=== PATIENT | female | born 1975 | race Caucasian/White ===

== ENCOUNTER 2017-04-20 17:56 | Observation (INO) | payer BC, OTHER ==
[2017-04-20] MEDS ORDERED: IPRATROPIUM 0.5 MG/2.5 ML NEBU INHALATION STA (18:26)
[2017-04-20] MEDS ORDERED: methylPREDNISolone SOD SUCCI 125 MG/2 ML VIAL IV STA (18:26)
[2017-04-20] MEDS ORDERED: SODIUM CHLORIDE 0.9% 1,000 ML IV STA ×2 (18:26)
[2017-04-20] MEDS ORDERED: ALBUTEROL NEBULIZED 2.5 MG/3 ML INHALATION STA (18:26)
[2017-04-20] MEDS ORDERED: cefTRIAXone IN SWFI 1,000 MG/10 ML SYRINGE IVP STA (18:26)
[2017-04-20] MEDS ORDERED: cefTRIAXone IN SWFI 2,000 MG/20 ML SYRINGE IVP STA (18:31)
[2017-04-20 19:38] LABS: Appearance,Urine Cloudy (Clear); Bacteria,Urine Occasional /hpf; Bilirubin,Urine Negative (Negative); Blood,Urine Small (Negative); Color,Urine Yellow; Glucose,Urine (UA) Negative (Negative); Ketones,Urine Negative (Negative); Leukocyte Esterase,Urine Trace (Negative); Nitrite,Urine Negative (Negative); Protein,Urine Trace (Negative); RBC,Urine 11 /hpf (0-5); Specific Gravity,Urine 1.008 (1.001-1.035); Squamous Epithelial Cell,Urine 2 /hpf (0-4); WBC,Urine 14 /hpf (0-5)
[2017-04-20 20:36] LABS: HCT 37.3 % (34.0-46.0); HGB 12.4 gm/dL (11.4-16.0); MCH 28.3 pg (25.0-35.0); MCHC 33.2 g/dL (31.0-37.0); MCV 85.4 fL (80.0-100.0); Platelet Count 166 k/uL (150-450); RBC 4.37 m/uL (3.80-5.40); RDW 13.4 % (11.5-15.5); WBC 5.3 k/uL (3.8-10.6)
--- NOTE | 2017-04-20 20:40 | XR ---
EXAMINATION TYPE: XR chest 2V DATE OF EXAM: 04/20/2017 COMPARISON: NONE HISTORY: Shortness of breath TECHNIQUE: Frontal and lateral views of the chest are obtained. FINDINGS: There is no focal air space opacity, pleural effusion, or pneumothorax seen. The cardiac silhouette size is within normal limits. There are overlying cardiac leads. There may be a spinal cu rvature. The osseous structures are intact. IMPRESSION: No acute cardiopulmonary process.
[2017-04-20 20:51] LABS: D-Dimer 2.54 mg/L FEU (<0.60); INR 1.1 (<1.2); Partial Thromboplastin Time 37.4 sec (22.0-30.0); Prothrombin Time 10.3 sec (9.0-12.0)
[2017-04-20 20:52] LABS: Albumin 3.4 g/dL (3.5-5.0); Calcium 8.8 mg/dL (8.4-10.2); Potassium 3.3 mmol/L (3.5-5.1); Total Bilirubin 1.2 mg/dL (0.2-1.3); Total Protein 6.2 g/dL (6.3-8.2)
[2017-04-20 21:02] LABS: Eosinophils # (M) 0.11 k/uL (0-0.7); Lymphocytes # (M) 1.06 k/uL (1.0-4.8); Monocytes # (M) 0.05 k/uL (0-1.0); Neutrophils # (M) 4.08 k/uL (1.3-7.7); Neutrophils % (M) 77 %; Nucleated Red Blood Cells 0 /100 WBC (0-0); Total Cells Counted 100
[2017-04-20 21:09] LABS: Creatine Kinase 34 U/L (30-135)
[2017-04-20 21:18] LABS: Creatine Kinase MB <0.2 ng/mL (0.0-2.4)
[2017-04-20 21:40] LABS: Troponin I <0.012 ng/mL (0.000-0.034)
--- NOTE | 2017-04-20 22:12 | ED ---
SOB HPI - General Chief Complaint: Shortness of Breath Stated Complaint: SOB Time Seen by Provider: 04/20/17 18:07 Source: patient Mode of arrival: wheelchair Limitations: no limitations - History of Present Illness Initial Comments: 41 years O female presents with a shortness of breath she said she got some UTIs she was put him on a Macrobid she does have a history of bladder infections then now she feels that she developed an ALLERGIC reaction to Macrobid she develop shortness of breath the back pain fever chills and aches all over. Has history of hypertension and migraine. Complains about the headache no neck stiffness no signs of any meningitis no chest pain she is short -winded now coughing up any phlegm no abdominal pain complaining about the back pain generalized no trauma review of system is unremarkable otherwise - Related Data Home Medications Medication Instructions Recorded Confirmed ALPRAZolam [Xanax] 0.25 mg PO DAILY PRN 04/20/17 04/20/17 Albuterol Sulfate [Proair Hfa] 2 puff INHALATION RT-Q6H PRN 04/20/17 04/20/17 Cetirizine HCl [Zyrtec] 10 mg PO DAILY 04/20/17 04/20/17 Ciprofloxacin HCl [Cipro] 500 mg PO BID 04/20/17 04/20/17 Citalopram Hydrobromide [CeleXA] 20 mg PO DAILY 04/20/17 04/20/17 Hydrochlorothiazide [Hydrodiuril] 25 mg PO DAILY 04/20/17 04/20/17 Allergies Allergy/AdvReac Type Severity Reaction Status Date / Time adhesive tape Allergy Rash/Hives Verified 04/20/17 19:09 nitrofurantoin Allergy SHORTNESS Verified 04/20/17 19:09 [From Macrobid] OF BREATHE shellfish derived [Shellfish] Allergy Swelling Verified 04/20/17 19:09 Sulfa (Sulfonamide Allergy Swelling Verified 04/20/17 19:09 Antibiotics) fish oil AdvReac Nausea & Verified 04/20/17 19:09 Vomiting Review of Systems ROS Statement: Those systems with pertinent positive or pertinent negative responses have been documented in the HPI. ROS Other: All systems not noted in ROS Statement are negative. Past Medical History Past Medical History: No Reported History History of Any Multi-Drug Resistant Organisms: None Reported Past Surgical History: Section, Ear Surgery Past Psychological History: Anxiety Smoking Status: Never smoker Past Alcohol Use History: None Reported General Exam - General Exam Comments Initial Comments: General: The patient is awake and alert, in moderate distress, pale and looks tired Skin: Skin is warm and dry and no rashes or lesions are noted. Eye: Pupils are equal, round and reactive to light, extra-ocular movements are intact; there is normal conjunctiva bilaterally. Ears, nose, mouth and throat: There are moist mucous membranes and no oral lesions. Neck: The neck is supple, there is no tenderness . Cardiovascular: There is a regular rate and rhythm. No murmur, rub or gallop is appreciated. Respiratory: To auscultation bilateral, poor air exchange deep breaths or painful Gastrointestinal: Soft, non-distended, non-tender abdomen without masses or organomegaly noted. There is no rebound or guarding present. Bowel sounds are unremarkable. Back: There is no tenderness to palpation in the midline. There is no obvious deformity. Musculoskeletal: Normal ROM, no tenderness, There is no pedal edema. There is no calf tenderness or swelling. No cords were appreciated. Neurological: CN II-XII intact, Cranial nerves III through XII are intact. There are no obvious motor or sensory deficits. Coordination appears grossly intact. Speech is normal. Psychiatric: Cooperative, appropriate mood & affect, normal judgment. Limitations: no limitations Course Vital Signs 04/20/17 04/20/17 04/20/17 18:06 19:23 19:25 Temperature 98.5 F Pulse Rate 85 85 96 Respiratory 18 20 Rate Blood Pressure 159/92 140/65 O2 Sat by Pulse 99 100 Oximetry 04/20/17 04/20/17 19:54 20:34 Temperature Pulse Rate 128 H 107 H Respiratory 18 Rate Blood Pressure 148/72 O2 Sat by Pulse 99 Oximetry EKG is a normal sinus rhythm ventricular rate is 84 TN interval is 120 QRS duration is 86 QT/QTc is 356/420 review of this EKG reveals T-wave inversion in lead 3 T-wave flattening in aVF no ST elevation or ST depression noticed in any of the other leads The patient is reassessed at term at 2210, d-dimer is quite elevated is 2.5 lactate is 2.1 urinalysis is positive chest x-ray, CBC, troponin, EKG are unremarkable flu a and flu B are unremarkable as well Medical Decision Making - Lab Data Result diagrams: 04/20/17 20:00 04/20/17 20:00 Lab Results 04/20/17 04/20/17 04/20/17 Range/Units 18:42 19:20 20:00 WBC 5.3 (3.8-10.6) k/uL RBC 4.37 (3.80-5.40) m/uL Hgb 12.4 (11.4-16.0) gm/dL Hct 37.3 (34.0-46.0) % MCV 85.4 (80.0-100.0) fL MCH 28.3 (25.0-35.0) pg MCHC 33.2 (31.0-37.0) g/dL RDW 13.4 (11.5-15.5) % Plt Count 166 (150-450) k/uL Neutrophils % (Manual) 77 % Lymphocytes % (Manual) 20 % Monocytes % (Manual) 1 % Eosinophils % (Manual) 2 % Neutrophils # (Manual) 4.08 (1.3-7.7) k/uL Lymphocytes # (Manual) 1.06 (1.0-4.8) k/uL Monocytes # (Manual) 0.05 (0-1.0) k/uL Eosinophils # (Manual) 0.11 (0-0.7) k/uL Nucleated RBCs 0 (0-0) /100 WBC Manual Slide Review Performed PT (9.0-12.0) sec INR (<1.2) APTT (22.0-30.0) sec D-Dimer (<0.60) mg/L FEU Sodium (137-145) mmol/L Potassium (3.5-5.1) mmol/L Chloride (98-107) mmol/L Carbon Dioxide (22-30) mmol/L Anion Gap mmol/L BUN (7-17) mg/dL Creatinine (0.52-1.04) mg/dL Est GFR (CKD-EPI)AfAm (>60 ml/min/1.73 sqM) Est GFR (CKD-EPI)NonAf (>60 ml/min/1.73 sqM) Glucose (74-99) mg/dL Plasma Lactic Acid [place] (0.7-2.0) mmol/L Calcium (8.4-10.2) mg/dL Total Bilirubin (0.2-1.3) mg/dL AST (14-36) U/L ALT (9-52) U/L Alkaline Phosphatase (38-126) U/L Total Creatine Kinase (30-135) U/L CK-MB (CK-2) (0.0-2.4) ng/mL CK-MB (CK-2) Rel Index Troponin I (0.000-0.034) ng/mL Total Protein (6.3-8.2) g/dL Albumin (3.5-5.0) g/dL Urine Color Yellow Urine Appearance Cloudy H (Clear) Urine pH 6.0 (5.0-8.0) Ur Specific [place] 1.008 (1.001-1.035) Urine Protein Trace H (Negative) Urine Glucose (UA) Negative (Negative) Urine Ketones Negative (Negative) Urine Blood Small H (Negative) Urine Nitrite Negative (Negative) Urine Bilirubin Negative (Negative) Urine Urobilinogen 2.0 (<2.0) mg/dL Ur Leukocyte Esterase Trace H (Negative) Urine RBC 11 H (0-5) /hpf Urine WBC 14 H (0-5) /hpf Ur Squamous Epith Cells 2 (0-4) /hpf Urine Bacteria Occasional H (None) /hpf Influenza Type A RNA Not Detected (Not Detectd) Influenza Type B (PCR) Not Detected (Not Detectd) 04/20/17 04/20/17 04/20/17 Range/Units 20:00 20:00 20:00 WBC (3.8-10.6) k/uL RBC (3.80-5.40) m/uL Hgb (11.4-16.0) gm/dL Hct (34.0-46.0) % MCV (80.0-100.0) fL MCH (25.0-35.0) pg MCHC (31.0-37.0) g/dL RDW (11.5-15.5) % Plt Count (150-450) k/uL Neutrophils % (Manual) % Lymphocytes % (Manual) % Monocytes % (Manual) % Eosinophils % (Manual) % Neutrophils # (Manual) (1.3-7.7) k/uL Lymphocytes # (Manual) (1.0-4.8) k/uL Monocytes # (Manual) (0-1.0) k/uL Eosinophils # (Manual) (0-0.7) k/uL Nucleated RBCs (0-0) /100 WBC Manual Slide Review PT 10.3 (9.0-12.0) sec INR 1.1 (<1.2) APTT 37.4 H (22.0-30.0) sec D-Dimer 2.54 H (<0.60) mg/L FEU Sodium 141 (137-145) mmol/L Potassium 3.3 L (3.5-5.1) mmol/L Chloride 104 (98-107) mmol/L Carbon Dioxide 23 (22-30) mmol/L Anion Gap 14 mmol/L BUN 12 (7-17) mg/dL Creatinine 1.00 (0.52-1.04) mg/dL Est GFR (CKD-EPI)AfAm 82 (>60 ml/min/1.73 sqM) Est GFR (CKD-EPI)NonAf 71 (>60 ml/min/1.73 sqM) Glucose 145 H (74-99) mg/dL Plasma Lactic Acid [place] (0.7-2.0) mmol/L Calcium 8.8 (8.4-10.2) mg/dL Total Bilirubin 1.2 (0.2-1.3) mg/dL AST 36 (14-36) U/L ALT 71 H (9-52) U/L Alkaline Phosphatase 145 H (38-126) U/L Total Creatine Kinase 34 (30-135) U/L CK-MB (CK-2) <0.2 (0.0-2.4) ng/mL CK-MB (CK-2) Rel Index Troponin I <0.012 (0.000-0.034) ng/mL Total Protein 6.2 L (6.3-8.2) g/dL Albumin 3.4 L (3.5-5.0) g/dL Urine Color Urine Appearance (Clear) Urine pH (5.0-8.0) Ur Specific [place] (1.001-1.035) Urine Protein (Negative) Urine Glucose (UA) (Negative) Urine Ketones (Negative) Urine Blood (Negative) Urine Nitrite (Negative) Urine Bilirubin (Negative) Urine Urobilinogen (<2.0) mg/dL Ur Leukocyte Esterase (Negative) Urine RBC (0-5) /hpf Urine WBC (0-5) /hpf Ur Squamous Epith Cells (0-4) /hpf Urine Bacteria (None) /hpf Influenza Type A RNA (Not Detectd) Influenza Type B (PCR) (Not Detectd) 04/20/17 Range/Units 20:00 WBC (3.8-10.6) k/uL RBC (3.80-5.40) m/uL Hgb (11.4-16.0) gm/dL Hct (34.0-46.0) % MCV (80.0-100.0) fL MCH (25.0-35.0) pg MCHC (31.0-37.0) g/dL RDW (11.5-15.5) % Plt Count (150-450) k/uL Neutrophils % (Manual) % Lymphocytes % (Manual) % Monocytes % (Manual) % Eosinophils % (Manual) % Neutrophils # (Manual) (1.3-7.7) k/uL Lymphocytes # (Manual) (1.0-4.8) k/uL Monocytes # (Manual) (0-1.0) k/uL Eosinophils # (Manual) (0-0.7) k/uL Nucleated RBCs (0-0) /100 WBC Manual Slide Review PT (9.0-12.0) sec INR (<1.2) APTT (22.0-30.0) sec D-Dimer (<0.60) mg/L FEU Sodium (137-145) mmol/L Potassium (3.5-5.1) mmol/L Chloride (98-107) mmol/L Carbon Dioxide (22-30) mmol/L Anion Gap mmol/L BUN (7-17) mg/dL Creatinine (0.52-1.04) mg/dL Est GFR (CKD-EPI)AfAm (>60 ml/min/1.73 sqM) Est GFR (CKD-EPI)NonAf (>60 ml/min/1.73 sqM) Glucose (74-99) mg/dL Plasma Lactic Acid [place] 3.1 H* (0.7-2.0) mmol/L Calcium (8.4-10.2) mg/dL Total Bilirubin (0.2-1.3) mg/dL AST (14-36) U/L ALT (9-52) U/L Alkaline Phosphatase (38-126) U/L Total Creatine Kinase (30-135) U/L CK-MB (CK-2) (0.0-2.4) ng/mL CK-MB (CK-2) Rel Index Troponin I (0.000-0.034) ng/mL Total Protein (6.3-8.2) g/dL Albumin (3.5-5.0) g/dL Urine Color Urine Appearance (Clear) Urine pH (5.0-8.0) Ur Specific [place] (1.001-1.035) Urine Protein (Negative) Urine Glucose (UA) (Negative) Urine Ketones (Negative) Urine Blood (Negative) Urine Nitrite (Negative) Urine Bilirubin (Negative) Urine Urobilinogen (<2.0) mg/dL Ur Leukocyte Esterase (Negative) Urine RBC (0-5) /hpf Urine WBC (0-5) /hpf Ur Squamous Epith Cells (0-4) /hpf Urine Bacteria (None) /hpf Influenza Type A RNA (Not Detectd) Influenza Type B (PCR) (Not Detectd) Disposition Clinical Impression: Dyspnea, Pleuritic chest pain Disposition: ADMITTED IP TO THIS HOSP Referrals: Rufino Tamayo DO [Primary Care Provider] - 1-2 days
[2017-04-20] MEDS ORDERED: NITROGLYCERIN SL TABS 0.4 MG TAB SUBLINGUAL PRN (22:18)
[2017-04-20] MEDS ORDERED: MORPHINE SULFATE 4 MG/ML SYRINGE IV PRN (22:18)
[2017-04-20] MEDS ORDERED: ALBUTEROL NEBULIZED 2.5 MG/3 ML INHALATION PRN (22:24)
[2017-04-20] MEDS ORDERED: ALPRAZolam 0.25 MG TAB PO PRN (22:24)
--- NOTE | 2017-04-20 22:46 | NM ---
EXAMINATION TYPE: NM pul vent and perfuse DATE OF EXAM: 04/20/2017 COMPARISON: NONE HISTORY: TECHNIQUE: Utilizing inhalation of 69.7 mCi Tc 99m DTPA aerosol and intravenous injection of 5.1 mCi of Tc 99m MAA, ventilation and perfusion images are acquired post injection in multiple projections. FINDINGS: Normal radiotracer distribution is noted in the lungs. There is no evidence of mismatched defects. Th ere is minimal clumping of the aerosol. IMPRESSION: Exam is within normal limits. There is a very low probability of pulmonary embolism.
[2017-04-20 23:35] VITALS: BMI 53.0
[2017-04-20 23:39] VITALS: RESP 16
[2017-04-21 01:44] LABS: Creatine Kinase 30 U/L (30-135)
[2017-04-21 01:55] LABS: Creatine Kinase MB <0.2 ng/mL (0.0-2.4); Troponin I <0.012 ng/mL (0.000-0.034)
[2017-04-21] MEDS ORDERED: LORATADINE 10 MG TAB PO SCH (09:00)
[2017-04-21] MEDS ORDERED: HYDROCHLOROTHIAZIDE 25 MG TAB PO SCH (09:00)
[2017-04-21] MEDS ORDERED: CITALOPRAM HYDROBROMIDE 20 MG TAB PO SCH (09:00)
[2017-04-21] MEDS ORDERED: ASPIRIN 325 MG TAB PO SCH (09:00)
[2017-04-21 09:05] LABS: Cholesterol 163 mg/dL (<200); HDL Cholesterol 25 mg/dL (40-60); LDL Cholesterol,Calculated 95 mg/dL (0-99); Triglycerides 215 mg/dL (<150)
[2017-04-21 09:23] LABS: Creatine Kinase 34 U/L (30-135)
[2017-04-21 09:35] LABS: Creatine Kinase MB 0.3 ng/mL (0.0-2.4); Troponin I <0.012 ng/mL (0.000-0.034)
--- NOTE | 2017-04-21 09:42 | P.CRDCN ---
History of Present Illness Consult date: 04/21/17 History of present illness: This is a 41-year-old female who apparently developed a urinary tract infection and was treated with Macrobid. She apparently took the medication for the first time. After taking the medications, she started having ALLERGIC reaction with the generalized body aches and also of difficulty breathing. She has some tight feeling in the chest from difficulty breathing and wheezing. Patient called primary care physician who advised her to come to the office but patient continued to have symptoms and came to the emergency room. Her EKGs did not reveal any acute changes. Her cardiac enzymes are negative 2. Patient is found to have lactic acidosis and also elevation of liver enzymes. Patient is feeling much better today. She denies having actual any chest pain. He does appear that patient had a reaction to the medication. No further cardiac workup is suggested at this time. Patient could be discharged home when medically felt to be stable. Past Medical History Past Medical History: Asthma, Hearing Disorder / Deafness History of Any Multi-Drug Resistant Organisms: None Reported Past Surgical History: Section, Ear Surgery Past Anesthesia/Blood Transfusion Reactions: No Reported Reaction Past Psychological History: Anxiety Smoking Status: Never smoker Past Alcohol Use History: None Reported Past Drug Use History: None Reported - Past Family History Mother Family Medical History: No Reported History Father Family Medical History: No Reported History Medications and Allergies Home Medications Medication Instructions Recorded Confirmed Type ALPRAZolam [Xanax] 0.25 mg PO BID 04/20/17 04/20/17 History Albuterol Sulfate [Proair Hfa] 2 puff INHALATION RT-Q6H PRN 04/20/17 04/20/17 History Cetirizine HCl [Zyrtec] 10 mg PO DAILY 04/20/17 04/20/17 History Ciprofloxacin HCl [Cipro] 500 mg PO BID 04/20/17 04/20/17 History Citalopram Hydrobromide [CeleXA] 20 mg PO DAILY 04/20/17 04/20/17 History Hydrochlorothiazide [Hydrodiuril] 25 mg PO DAILY 04/20/17 04/20/17 History Allergies Allergy/AdvReac Type Severity Reaction Status Date / Time adhesive tape Allergy Rash/Hives Verified 04/20/17 23:24 nitrofurantoin Allergy SHORTNESS Verified 04/20/17 23:24 [From Macrobid] OF BREATHE shellfish derived [Shellfish] Allergy Swelling Verified 04/20/17 23:24 Sulfa (Sulfonamide Allergy Swelling Verified 04/20/17 23:24 Antibiotics) diphenhydramine AdvReac Unknown Verified 04/20/17 23:24 [From Benadryl] fish oil AdvReac Nausea & Verified 04/20/17 23:24 Vomiting Physical Exam Vitals: Vital Signs Temp Pulse Pulse Resp BP BP Pulse Ox 04/21/17 07:49 98 F 67 16 128/58 96 04/21/17 04:00 16 04/21/17 03:47 98.7 F 66 16 129/56 97 04/21/17 00:00 16 04/20/17 23:39 100.2 F H 91 16 155/80 95 04/20/17 22:51 99 18 139/75 97 04/20/17 20:34 107 H 18 148/72 99 04/20/17 19:54 128 H 04/20/17 19:25 96 04/20/17 19:23 85 20 140/65 100 04/20/17 18:06 98.5 F 85 18 159/92 99 Intake and Output 04/20/17 04/21/17 04/21/17 22:59 06:59 14:59 Other: # Voids 1 Weight 140.1 kg GENERAL EXAM: Patient is alert and oriented and doesn't appear to be in any acute distress HEENT: Normocephalic. Normal reaction of pupils, equal size, normal range of extraocular motion. No erythema or exudates in the throat. NECK: No masses, no nuchal rigidity. CHEST: No chest wall deformity. LUNGS: Equal air entry with no crackles or wheeze. HEART: S1 and S2 normal with no audible mumurs or gallops. Regular rhythm, femorals equal on both sides.. ABDOMEN: No hepatosplenomegaly, normal bowel sounds, no guarding or rigidity. SKIN: No rashes CENTRAL NERVOUS SYSTEM: No focal deficits. EXTREMITIES: No cyanosis, clubbing or edema. Results 04/20/17 20:00 04/20/17 20:00 Cardiac Enzymes 04/20/17 04/20/17 04/21/17 Range/Units 20:00 20:00 01:02 AST 36 (14-36) U/L CK-MB (CK-2) <0.2 <0.2 (0.0-2.4) ng/mL Troponin I <0.012 <0.012 (0.000-0.034) ng/mL Coagulation 04/20/17 Range/Units 20:00 PT 10.3 (9.0-12.0) sec APTT 37.4 H (22.0-30.0) sec Lipids 04/21/17 Range/Units 08:25 Triglycerides 215 H (<150) mg/dL Cholesterol 163 (<200) mg/dL HDL Cholesterol 25 L (40-60) mg/dL CBC 04/20/17 Range/Units 20:00 WBC 5.3 (3.8-10.6) k/uL RBC 4.37 (3.80-5.40) m/uL Hgb 12.4 (11.4-16.0) gm/dL Hct 37.3 (34.0-46.0) % Plt Count 166 (150-450) k/uL Comprehensive Metabolic Panel 04/20/17 Range/Units 20:00 Sodium 141 (137-145) mmol/L Potassium 3.3 L (3.5-5.1) mmol/L Chloride 104 (98-107) mmol/L Carbon Dioxide 23 (22-30) mmol/L BUN 12 (7-17) mg/dL Creatinine 1.00 (0.52-1.04) mg/dL Glucose 145 H (74-99) mg/dL Calcium 8.8 (8.4-10.2) mg/dL AST 36 (14-36) U/L ALT 71 H (9-52) U/L Alkaline Phosphatase 145 H (38-126) U/L Total Protein 6.2 L (6.3-8.2) g/dL Albumin 3.4 L (3.5-5.0) g/dL Current Medications Generic Name Dose Route Start Last Admin Trade Name Freq PRN Reason Stop Dose Admin Albuterol Sulfate 2.5 mg 04/20/17 22:24 Ventolin Nebulized INHALATION RT-Q6H PRN Shortness Of Breath Alprazolam 0.25 mg 04/20/17 22:24 Xanax PO DAILY PRN Anxiety Aspirin 325 mg 04/21/17 09:00 Aspirin PO DAILY PATIENCE Citalopram Hydrobromide 20 mg 04/21/17 09:00 Celexa PO DAILY PATIENCE Hydrochlorothiazide 25 mg 04/21/17 09:00 Hydrodiuril PO DAILY PATIENCE Loratadine 10 mg 04/21/17 09:00 Claritin PO DAILY PATIENCE Morphine Sulfate 4 mg 04/20/17 22:18 Morphine Sulfate (Inj) IV Q5M PRN Chest Pain Nitroglycerin 0.4 mg 04/20/17 22:18 Nitrostat SUBLINGUAL Q5M PRN Chest Pain Intake and Output 04/20/17 04/21/17 04/21/17 22:59 06:59 14:59 Other: # Voids 1 Weight 140.1 kg 04/20/17 20:00 04/20/17 20:00 EKG Interpretations (text) Sinus rhythm Assessment and Plan (1) Allergic reaction caused by a drug Current Visit: Yes Status: Acute Code(s): T78.40XA - ALLERGY, UNSPECIFIED, INITIAL ENCOUNTER SNOMED Code(s): 597385436 Plan: Her symptoms are suggestive of reaction to medication and probably exacerbation of asthma. Her EKGs and cardiac enzymes are negative. Patient could be discharged home. No further cardiac workup at this time
[2017-04-21 12:03] VITALS: BP 117/72; PULSE 94; TEMP 97.9
--- NOTE | 2017-04-21 23:01 | P.HPIM ---
History of Present Illness H&P Date: 04/21/17 Chief Complaint: Chest tightness Patient is a 41-year-old female with a known history of asthma came to ER with complaints of difficulty breathing and generalized body aches. Patient is currently treated with Macrobid for urinary tract infection. Patient to the medication for the first time and patient developed ALLERGY reaction with generalized body aches and difficulty in breathing. She felt some chest tightness along with shortness of breath and wheezing. Patient contacted from his primary care physician who advised her to go to ER. EKG showed sinus rhythm Cardiac enzymes 2 negative Otherwise denied any fever or chills no cough is from production no nausea vomiting or abdominal pain. Lactic acidosis 3.1 and slightly elevated liver enzymes Potassium 3.3 D-dimer is elevated. VQ scan showed low probable to for PE Review of Systems Constitutional: Patient denies any fever or chills . No generalized weakness or weight loss. Abdomen: Patient denied nausea vomiting and diarrhea and abdominal pain. Cardiovascular: Patient denies any chest pain or short of breath no palpitations. Respiratory: patient denied any cough is from production. No shortness of breath Neurologic: Patient denied any numbness or tingling headache. Musculoskeletal: Patient denies any complaints of joint swelling or deformity. Skin: Negative Psychiatric: Negative Endocrine: No heat or cold intolerance. No recent weight gain. Genitourinary: No dysuria or hematuria. All other 14 point ROS negative except the above Past Medical History Past Medical History: Asthma, Hearing Disorder / Deafness History of Any Multi-Drug Resistant Organisms: None Reported Past Surgical History: Section, Ear Surgery Past Anesthesia/Blood Transfusion Reactions: No Reported Reaction Past Psychological History: Anxiety Smoking Status: Never smoker Past Alcohol Use History: None Reported Past Drug Use History: None Reported - Past Family History Mother Family Medical History: No Reported History Father Family Medical History: No Reported History Medications and Allergies Home Medications Medication Instructions Recorded Confirmed Type ALPRAZolam [Xanax] 0.25 mg PO BID 04/20/17 04/20/17 History Albuterol Sulfate [Proair Hfa] 2 puff INHALATION RT-Q6H PRN 04/20/17 04/20/17 History Cetirizine HCl [Zyrtec] 10 mg PO DAILY 04/20/17 04/20/17 History Ciprofloxacin HCl [Cipro] 500 mg PO BID 04/20/17 04/20/17 History Citalopram Hydrobromide [CeleXA] 20 mg PO DAILY 04/20/17 04/20/17 History Hydrochlorothiazide [Hydrodiuril] 25 mg PO DAILY 04/20/17 04/20/17 History Allergies Allergy/AdvReac Type Severity Reaction Status Date / Time adhesive tape Allergy Rash/Hives Verified 04/20/17 23:24 nitrofurantoin Allergy SHORTNESS Verified 04/20/17 23:24 [From Macrobid] OF BREATHE shellfish derived [Shellfish] Allergy Swelling Verified 04/20/17 23:24 Sulfa (Sulfonamide Allergy Swelling Verified 04/20/17 23:24 Antibiotics) diphenhydramine AdvReac Unknown Verified 04/20/17 23:24 [From Benadryl] fish oil AdvReac Nausea & Verified 04/20/17 23:24 Vomiting Physical Exam Vitals: Vital Signs Temp Pulse Pulse Resp BP BP Pulse Ox 04/21/17 07:49 98 F 67 16 128/58 96 04/21/17 04:00 16 04/21/17 03:47 98.7 F 66 16 129/56 97 04/21/17 00:00 16 04/20/17 23:39 100.2 F H 91 16 155/80 95 04/20/17 22:51 99 18 139/75 97 04/20/17 20:34 107 H 18 148/72 99 04/20/17 19:54 128 H 04/20/17 19:25 96 04/20/17 19:23 85 20 140/65 100 04/20/17 18:06 98.5 F 85 18 159/92 99 Intake and Output 04/20/17 04/21/17 04/21/17 22:59 06:59 14:59 Other: # Voids 1 Weight 140.1 kg PHYSICAL EXAMINATION: Patient is lying in the bed comfortably, no acute distress, awake alert and oriented.. HEENT: Normocephalic. Neck is supple. Pupils reactive. Nostrils clear. Oral cavity is moist. Ears reveal no drainage. Neck reveals no JVD, carotid bruits, or thyromegaly. CHEST EXAMINATION: Trachea is central. Symmetrical expansion. Lung smith clear to auscultation and percussion. CARDIAC: Normal S1, S2 with no gallops. No murmurs ABDOMEN: Soft. Bowel sounds normal. No organomegaly. No abdominal bruits. Extremities: reveal no edema. No clubbing or cyanosis Neurologically awake, alert, oriented x3 with well-coordinated movements. No focal deficits noted Skin: No rash or skin lesions. Psychiatric: Coperative. Nonsuicidal Musculoskeletal: No joint swelling or deformity. Normal range of motion. Results CBC & Chem 7: 04/20/17 20:00 04/20/17 20:00 Labs: Abnormal Lab Results - Last 24 Hours (Table) 04/20/17 04/20/17 04/20/17 Range/Units 19:20 20:00 20:00 APTT 37.4 H (22.0-30.0) sec D-Dimer 2.54 H (<0.60) mg/L FEU Potassium 3.3 L (3.5-5.1) mmol/L Glucose 145 H (74-99) mg/dL Plasma Lactic Acid [place] (0.7-2.0) mmol/L ALT 71 H (9-52) U/L Alkaline Phosphatase 145 H (38-126) U/L Total Protein 6.2 L (6.3-8.2) g/dL Albumin 3.4 L (3.5-5.0) g/dL Triglycerides (<150) mg/dL HDL Cholesterol (40-60) mg/dL Urine Appearance Cloudy H (Clear) Urine Protein Trace H (Negative) Urine Blood Small H (Negative) Ur Leukocyte Esterase Trace H (Negative) Urine RBC 11 H (0-5) /hpf Urine WBC 14 H (0-5) /hpf Urine Bacteria Occasional H (None) /hpf 04/20/17 04/21/17 04/21/17 Range/Units 20:00 01:02 08:25 APTT (22.0-30.0) sec D-Dimer (<0.60) mg/L FEU Potassium (3.5-5.1) mmol/L Glucose (74-99) mg/dL Plasma Lactic Acid [place] 3.1 H* 2.1 H* (0.7-2.0) mmol/L ALT (9-52) U/L Alkaline Phosphatase (38-126) U/L Total Protein (6.3-8.2) g/dL Albumin (3.5-5.0) g/dL Triglycerides 215 H (<150) mg/dL HDL Cholesterol 25 L (40-60) mg/dL Urine Appearance (Clear) Urine Protein (Negative) Urine Blood (Negative) Ur Leukocyte Esterase (Negative) Urine RBC (0-5) /hpf Urine WBC (0-5) /hpf Urine Bacteria (None) /hpf Thrombosis Risk Factor Assmnt - Choose All That Apply Each Factor Represents 1 point: Obesity (BMI >25) Thrombosis Risk Factor Assessment Total Risk Factor Score: 1 Thrombosis Risk Factor Assessment Level: Low Risk Assessment and Plan Assessment: Chest tightness and shortness of breath likely due to ALLERGY reaction. Improved now Ruled out acute coronary syndrome Asthma stable Hearing defect Elevated liver enzymes Lactic acidosis Hypokalemia Plan: Patient be continued on telemetry monitoring. Serial troponins are negative. Patient will be continued on IV fluids and repeat lactic acid level. Replace potassium and follow-up liver enzymes as well. Breathing treatments as needed. Further admonitions based on the clinical course. Time with Patient: Greater than 30
--- NOTE | 2017-04-21 23:03 | P.DS ---
Providers Date of admission: 04/20/17 22:19 Expected date of discharge: 04/21/17 Attending physician: Rock Akers Consults: 04/20/17 22:19 Consult Physician Urgent Consulting Provider: Bo Wise Consult Reason/Comments: chest pain and dyspnea Do you want consulting provider notified?: Yes [facility] [place] Course: Discharge diagnosis Chest tightness and shortness of breath likely due to ALLERGY reaction. Improved now Ruled out acute coronary syndrome Asthma stable Hearing defect Elevated liver enzymes Lactic acidosis Hypokalemia Hospital course Patient is a 41-year-old female with a known history of asthma came to ER with complaints of difficulty breathing and generalized body aches. Patient is currently treated with Macrobid for urinary tract infection. Patient to the medication for the first time and patient developed ALLERGY reaction with generalized body aches and difficulty in breathing. She felt some chest tightness along with shortness of breath and wheezing. Patient contacted from his primary care physician who advised her to go to ER. EKG showed sinus rhythm Cardiac enzymes 2 negative Otherwise denied any fever or chills no cough is from production no nausea vomiting or abdominal pain. Lactic acidosis 3.1 and slightly elevated liver enzymes Potassium 3.3 D-dimer is elevated. VQ scan showed low probable to for PE Patient was continued on telemetry monitoring. Serial troponins are negative. Patient will be continued on IV fluids and repeat lactic acid level. Replace potassium and follow-up liver enzymes as well. Breathing treatments as needed. Further admonitions based on the clinical course. But patient left the againest medical advice Patient Condition at Discharge: Fair Plan - Discharge Summary New Discharge Prescriptions: No Action Ciprofloxacin HCl [Cipro] 500 mg PO BID Albuterol Sulfate [Proair Hfa] 2 puff INHALATION RT-Q6H PRN PRN Reason: Shortness Of Breath Hydrochlorothiazide [Hydrodiuril] 25 mg PO DAILY Citalopram Hydrobromide [CeleXA] 20 mg PO DAILY Cetirizine HCl [Zyrtec] 10 mg PO DAILY ALPRAZolam [Xanax] 0.25 mg PO BID Discharge Medication List ALPRAZolam [Xanax] 0.25 mg PO BID 04/20/17 [History] Albuterol Sulfate [Proair Hfa] 2 puff INHALATION RT-Q6H PRN 04/20/17 [History] Cetirizine HCl [Zyrtec] 10 mg PO DAILY 04/20/17 [History] Ciprofloxacin HCl [Cipro] 500 mg PO BID 04/20/17 [History] Citalopram Hydrobromide [CeleXA] 20 mg PO DAILY 04/20/17 [History] Hydrochlorothiazide [Hydrodiuril] 25 mg PO DAILY 04/20/17 [History] Follow up Appointment(s)/Referral(s): Rufino Tamayo DO [Primary Care Provider] - 1-2 days Discharge Disposition: HOME SELF-CARE
== END 2017-04-21 14:14 | disposition home or self-care (01) ==
LOC: EC 17:56 → 3OBS 22:19
PROVIDERS: ADMIT Hospitalist; ATTEND Hospitalist
DX: R07.89 Other chest pain (principal); R07.81 Pleurodynia; R06.2 Wheezing; R06.02 Shortness of breath; E87.6 Hypokalemia; E87.2 Acidosis; R74.8 Abnormal levels of other serum enzymes; R52 Pain, unspecified; R06.00 Dyspnea, unspecified; I10 Essential (primary) hypertension; R50.9 Fever, unspecified; M54.9 Dorsalgia, unspecified; R79.89 Other specified abnormal findings of blood chemistry; N39.0 Urinary tract infection, site not specified; G43.909 Migraine, unspecified, not intractable, without status migrainosus; F41.9 Anxiety disorder, unspecified; J45.909 Unspecified asthma, uncomplicated; H91.90 Unspecified hearing loss, unspecified ear; Z87.440 Personal history of urinary (tract) infections; Z79.899 Other long term (current) drug therapy; Z88.1 Allergy status to other antibiotic agents; Z91.013 Allergy to seafood; Z88.2 Allergy status to sulfonamides; Z91.048 Other nonmedicinal substance allergy status; E66.9 Obesity, unspecified; Z68.43 Body mass index [BMI] 50.0-59.9, adult
CPT/HCPCS: 99285; 96374; 96375; 96361 ×7; 36415; 94640; 93005; 85379; 80061; 80053; 82550 ×2; 82553 ×2; 83605 ×2; 84484 ×2; 85025; 85610; 85730; 81001; 87040; 87077; 87186; 87502; 71046; 78582; G0378 ×2; A9540; A9567; J2930; J0696

== ENCOUNTER 2017-04-22 12:59 | Emergency (ER) | payer OTHER ==
[2017-04-22 14:40] LABS: Basophils % (A) 0 %; Eosinophils # (A) 0.1 k/uL (0-0.7); Eosinophils % (A) 1 %; HCT 36.9 % (34.0-46.0); HGB 12.1 gm/dL (11.4-16.0); Lymphocytes # (A) 1.8 k/uL (1.0-4.8); Lymphocytes % (A) 22 %; MCH 28.1 pg (25.0-35.0); MCHC 32.9 g/dL (31.0-37.0); MCV 85.4 fL (80.0-100.0); Mean Platelet Volume 7.3; Monocytes # (A) 0.3 k/uL (0-1.0); Monocytes % (A) 4 %; Neutrophils # (A) 6.1 k/uL (1.3-7.7); Neutrophils % (A) 72 %; Platelet Count 236 k/uL (150-450); RBC 4.32 m/uL (3.80-5.40); RDW 13.6 % (11.5-15.5); WBC 8.5 k/uL (3.8-10.6)
--- NOTE | 2017-04-22 14:45 | ED ---
Recheck HPI - General Chief Complaint: Recheck/Abnormal Lab/Rx Stated Complaint: Dr Sent Time Seen by Provider: 04/22/17 13:31 Source: patient, RN notes reviewed, old records reviewed Mode of arrival: ambulatory Limitations: no limitations - History of Present Illness Initial Comments: This patient is a 41-year-old female presents emergency department today chief complaint of an abnormal lab result. Patient reports that she was told that she had a positive blood culture from a recent admission 2 days ago. Patient reports that she left AGAINST MEDICAL ADVICE yesterday she did not see a physician. Patient states that she actually feels better today that she's had in the past week. Patient relates that she has had fever and chills earlier in the week related to urinary tract infection. That what initially brought the patient to the ER was ALLERGIC reaction to her antibiotic medication. Patient relates that since discontinuing the antibiotic she feels much better. She was concerned because they called her with this abnormal lab result. Patient states that she's had no recent fever or chills. Denies any chest pain or shortness of breath. - Related Data Home Medications Medication Instructions Recorded Confirmed ALPRAZolam [Xanax] 0.25 mg PO BID 04/20/17 04/22/17 Albuterol Sulfate [Proair Hfa] 2 puff INHALATION RT-Q6H PRN 04/20/17 04/22/17 Cetirizine HCl [Zyrtec] 10 mg PO DAILY 04/20/17 04/22/17 Ciprofloxacin HCl [Cipro] 500 mg PO BID 04/20/17 04/22/17 Citalopram Hydrobromide [CeleXA] 20 mg PO DAILY 04/20/17 04/22/17 Hydrochlorothiazide [Hydrodiuril] 25 mg PO DAILY 04/20/17 04/22/17 Allergies Allergy/AdvReac Type Severity Reaction Status Date / Time nitrofurantoin Allergy Severe Dyspnea Verified 04/22/17 13:51 [From Macrobid] adhesive tape Allergy Rash/Hives Verified 04/22/17 13:51 shellfish derived [Shellfish] Allergy Swelling Verified 04/22/17 13:51 Sulfa (Sulfonamide Allergy Swelling Verified 04/22/17 13:51 Antibiotics) diphenhydramine AdvReac Unknown Verified 04/22/17 13:51 [From Benadryl] fish oil AdvReac Nausea & Verified 04/22/17 13:51 Vomiting Review of Systems ROS Statement: Those systems with pertinent positive or pertinent negative responses have been documented in the HPI. ROS Other: All systems not noted in ROS Statement are negative. Past Medical History Past Medical History: Asthma, Hearing Disorder / Deafness History of Any Multi-Drug Resistant Organisms: None Reported Past Surgical History: Section, Ear Surgery Past Anesthesia/Blood Transfusion Reactions: No Reported Reaction Past Psychological History: Anxiety Smoking Status: Never smoker Past Alcohol Use History: None Reported Past Drug Use History: None Reported - Past Family History Mother Family Medical History: No Reported History Father Family Medical History: No Reported History General Exam - General Exam Comments Initial Comments: This patient is a 41-year-old female. No acute distress. Limitations: no limitations General appearance: alert, in no apparent distress Head exam: Present: atraumatic Eye exam: Present: normal appearance, PERRL, EOMI. Absent: scleral icterus, conjunctival injection, periorbital swelling ENT exam: Present: normal exam, mucous membranes moist Neck exam: Present: normal inspection. Absent: tenderness, meningismus, lymphadenopathy Respiratory exam: Present: normal lung sounds bilaterally. Absent: respiratory distress, wheezes, rales, rhonchi, stridor Cardiovascular Exam: Present: regular rate, normal rhythm, normal heart sounds. Absent: systolic murmur, diastolic murmur, rubs, gallop, clicks GI/Abdominal exam: Present: soft, normal bowel sounds. Absent: distended, tenderness, guarding, rebound, rigid Extremities exam: Present: normal inspection, full ROM, normal capillary refill. Absent: tenderness, pedal edema, joint swelling, calf tenderness Back exam: Present: normal inspection Neurological exam: Present: alert, oriented X3, CN II-XII intact Course Vital Signs 04/22/17 04/22/17 04/22/17 13:01 15:32 15:44 Temperature 98.4 F 97.9 F Pulse Rate 79 68 Respiratory 20 18 Rate Blood Pressure 137/78 130/73 O2 Sat by Pulse 99 99 Oximetry Medical Decision Making - Medical Decision Making This patient presents with abnormal blood culture from recent admission. She was recently admitted for chest pain and SOB after medication allergic reaction from macrobid from a yti. She was admitted and then left AMA after not seeing a physician and stating she felt like she was better. She was discharged at that time with Cipro for UTI. She has been called with a coagulase negative gram positive cocci in cluster positive blood culture. Urine culture was postive for E.coli. She states she feels better today than her previous admissions. At this time patient is afebrile, and appears well. No Leukocytosis. Discussed with Dr. Miguel. This is a common contaminate for blood culture. Discussed repeat blood culture today and rest of labs are within normal limits. Patient will continue to have cipro at home for UTI and discussed follow up with PCP. REturn parameters discussed. - Lab Data Result diagrams: 04/22/17 14:21 04/22/17 14:21 Lab Results 04/22/17 04/22/17 04/22/17 Range/Units 14:21 14:21 14:21 WBC 8.5 (3.8-10.6) k/uL RBC 4.32 (3.80-5.40) m/uL Hgb 12.1 (11.4-16.0) gm/dL Hct 36.9 (34.0-46.0) % MCV 85.4 (80.0-100.0) fL MCH 28.1 (25.0-35.0) pg MCHC 32.9 (31.0-37.0) g/dL RDW 13.6 (11.5-15.5) % Plt Count 236 (150-450) k/uL Neutrophils % 72 % Lymphocytes % 22 % Monocytes % 4 % Eosinophils % 1 % Basophils % 0 % Neutrophils # 6.1 (1.3-7.7) k/uL Lymphocytes # 1.8 (1.0-4.8) k/uL Monocytes # 0.3 (0-1.0) k/uL Eosinophils # 0.1 (0-0.7) k/uL Basophils # 0.0 (0-0.2) k/uL Sodium 143 (137-145) mmol/L Potassium 3.7 (3.5-5.1) mmol/L Chloride 104 (98-107) mmol/L Carbon Dioxide 27 (22-30) mmol/L Anion Gap 12 mmol/L BUN 23 H (7-17) mg/dL Creatinine 1.10 H (0.52-1.04) mg/dL Est GFR (CKD-EPI)AfAm 73 (>60 ml/min/1.73 sqM) Est GFR (CKD-EPI)NonAf 63 (>60 ml/min/1.73 sqM) Glucose 125 H (74-99) mg/dL Plasma Lactic Acid Fracisco 1.9 (0.7-2.0) mmol/L Calcium 9.1 (8.4-10.2) mg/dL Disposition Clinical Impression: Abnormal laboratory test result Disposition: HOME SELF-CARE Condition: Good Instructions: Urinary Tract Infection in Women (ED) Additional Instructions: Patient advised to follow-up with primary care physician. Continue to take antibiotic that was prescribed to you. Return to emergency department if any alarming signs or symptoms occur. Referrals: Rufino Tamayo DO [Primary Care Provider] - 1-2 days Time of Disposition: 15:27
[2017-04-22 15:00] LABS: Calcium 9.1 mg/dL (8.4-10.2); Potassium 3.7 mmol/L (3.5-5.1)
[2017-04-22 15:33] VITALS: BP 130/73; PULSE 68; RESP 18
[2017-04-22 15:45] VITALS: TEMP 97.9
== END 2017-04-22 15:43 | disposition home or self-care (01) ==
LOC: EC 12:59
DX: R79.9 Abnormal finding of blood chemistry, unspecified (principal); N39.0 Urinary tract infection, site not specified; F41.9 Anxiety disorder, unspecified; Z79.899 Other long term (current) drug therapy; Z88.1 Allergy status to other antibiotic agents; Z88.2 Allergy status to sulfonamides; Z88.8 Allergy status to other drugs, medicaments and biological substances; Z91.013 Allergy to seafood; Z91.09 Other allergy status, other than to drugs and biological substances
CPT/HCPCS: 36415; 80048; 83605; 85025; 87040; 99284

== ENCOUNTER → 2017-10-06 | Outpatient (CLI) | payer OTHER ==
[2017-10-06 12:04] LABS: Glucose 3 Hour, Gest 98 mg/dL
== END | disposition home or self-care (01) ==
LOC: LABWHC1 07:43
PROVIDERS: ATTEND Obstetrics & Gynecology
DX: O26.90 Pregnancy related conditions, unspecified, unspecified trimester (principal); O99.810 Abnormal glucose complicating pregnancy; O99.214 Obesity complicating childbirth; E66.01 Morbid (severe) obesity due to excess calories; Z3A.00 Weeks of gestation of pregnancy not specified
CPT/HCPCS: 36415; 82951; 82952

== ENCOUNTER 2017-12-25 12:59 | Outpatient (CLI) | payer BC, OTHER ==
[2017-12-25 13:29] VITALS: TEMP 98
[2017-12-25 13:30] VITALS: BP 128/60; RESP 16
[2017-12-25 14:12] VITALS: PULSE 91
--- NOTE | 2017-12-25 14:55 | US ---
EXAMINATION TYPE: US OB BPP wo non-stress DATE OF EXAM: 12/25/2017 COMPARISON: NONE CLINICAL HISTORY: variables in heart rate. abn NST EXAM PERFORMED: Transabdominal (TA) BPP PARAMETERS: PRESENTATION: Vertex HEART RATE: 163 bpm RHYTHM: Normal LEEROY: 25.8 DIAPHRAGM IMAGED: Yes BPP SCORIN. Breathin (1 episode of breathing of 30 second duration in 30 minutes of scanning time) 2. Movement: 2 (at least 3 discrete body movements in 30 minutes) 3. Tone: 2 (1 episode of active flexion/extension of limb) 4. LEEROY: 2 (LEEROY index > 5cm) TOTAL SCORE: 8 / 8
--- NOTE | 2018-01-01 08:37 | P.MSEPDOC ---
Presenting Problems - Arrival Data Date of Arrival on Unit: 12/25/17 Time of Arrival on Unit: 12:59 Mode of Transport: Portable - Complaint OB-Reason for Admission/Chief Complaint: Decreased Movement, Observation/ Evaluation Comment: Comment: pt here with c/o decreased movement and contractions, pt is seeing Dr. Aiken at [facility] for high risk due to age/obesity/ hx of pre eclampsia, pt. reports last fm was around 1100 and that she has been johnathan on and off since last. week at her nst appt, denies lof/vb, pt has a hx of a c/s secondary to intolerence. 19 years ago, she is scheduled for a repeat c/s 01/27, pt denies espinoza/blurred. vision/epigastric pain Medical History - Information : 2 Para: 1 Term: 1 : 0 Abortions: Spontaneous or Elective: 0 Number of Living Children: 1 - Gestational Age Gestational Age by MADELEINE (wks/days): 33 Weeks and 1 Days - History Complications: Prior Comment: hx of pre eclampsia with first , currently taking labetalol 100 mg bid for elevated bps Review of Systems - Review of Systems Constitutional: No problems Breast: No problems ENT: No problems Cardiovascular: No problems Respiratory: No problems Gastrointestinal: No problems Genitourinary: No problems Musculoskeletal: No problems Neurological: No problems Skin: No problems Vital Signs - Temperature Temperature: 98.0 F Temperature Source: Temporal Artery Scan - Pulse Right Brachial Pulse Rate: 91 Pulse Assessment Method: Automatic Cuff - Respirations Respiratory Rate: 16 Oxygen Delivery Method: Room Air O2 Sat by Pulse Oximetry: 98 - Blood Pressure Right Arm Blood Pressure: 128/60 Blood Pressure Mean: 82 Blood Pressure Source: Automatic Cuff Medical Screen Scoring (Pre) - Cervical Exam Dilation: 0 cm = 0 Membranes: Intact - Uterine Contractions Frequency: > 5 minutes apart = 1 Duration: > 40 seconds = 2 Intensity: N/A - Maternal Vital Signs Maternal Temperature: N/A Maternal Blood Pressure: N/A Signs of Preeclampsia: N/A Maternal Respirations: N/A - Pain Assessment Pain Location and Character: Abdomen Pain Scale Used: Numeric (1 - 10) Pain Intensity: 3 Pain Management Goal: 3 Pain Description: *Acute, Cramping Pain Radiation Location: none Pain Frequency: Intermittent Pain Duration: 2 Pain Duration Units: Hours Pain Behavior: None Exhibited Pain Aggravating Factors: Contractions - Maternal Trauma Maternal Trauma: N/A - Assessment Baseline FHR: 145 Heart Rate - NICHD Category: Category I (Normal) = 0 NST: Reactive Position: N/A Station: N/A - Total Score Total Score (Pre): 3 - Level of Risk Level of Risk: Low (0-5) Physician Notification (Pre) - Physician Notified Physician Notified Date: 12/25/17 Physician Notified Time: 13:57 Physician/Practitioner Notifed:: Dr Giron Spoke With: Dr Giron New Order Received: Yes (bpp) Medical Screen Scoring (Post) - Uterine Contractions Frequency: > 5 minutes apart = 1 Duration: > 40 seconds = 2 Intensity: N/A - Maternal Vital Signs Maternal Temperature: N/A Maternal Blood Pressure: N/A Signs of Preeclampsia: N/A Maternal Respirations: N/A - Pain Assessment Pain Scale Used: Numeric (1 - 10) Pain Intensity: 0 - Maternal Trauma Maternal Trauma: N/A - Assessment Heart Rate: 145 Heart Rate - NICHD Category: Category I (Normal) = 0 NST: Reactive Position: N/A Station: N/A - Total Score Total Score (Post): 3 - Post Treatment Level of Risk Post Treatment Level of Risk: Low (0-5) Physician Notification (Post) - Physician Notified Physician Notified Date: 12/25/17 Physician Notified Time: 15:20 Physician/Practitioner Notified:: Dr Giron Spoke With: Dr Giron New Order Received: Yes (dc home) - Notification Comment Comment: reviewed bpp results of 09/20, pt ok to mo home, pt has a doctor's appt 12-27 for check up, bpp and nst in [place], pt reports + fm at this time Disposition - Disposition OB Disposition: Discharge to home, Written follow up instructions reviewed Discharge Date: 12/25/17 Discharge Time: 15:30 I agree with the RN Medical Screening Exam: Yes Risk & Benefit of care provided described in d/c instruction: Yes Diagnosis: DECREASED MOVEMENTS, THIRD TRIMESTER, FETUS 1
== END 2017-12-25 15:30 | disposition home or self-care (01) ==
LOC: FBPOP 12:59
PROVIDERS: ATTEND Obstetrics & Gynecology
DX: O36.8131 Decreased fetal movements, third trimester, fetus 1 (principal); Z3A.33 33 weeks gestation of pregnancy
CPT/HCPCS: 59025; 76819; 99213

== ENCOUNTER 2020-04-19 20:19 | Emergency (ER) | payer OTHER ==
[2020-04-19] MEDS ORDERED: ACETAMINOPHEN TAB 325 MG TAB PO STA (20:55)
[2020-04-19] MEDS ORDERED: IBUPROFEN 600 MG TAB PO STA (20:55)
--- NOTE | 2020-04-19 20:55 | ED ---
SOB HPI - General Chief Complaint: Shortness of Breath Stated Complaint: Covid + Source: patient, RN notes reviewed Mode of arrival: ambulatory Limitations: no limitations - History of Present Illness Initial Comments: Patient is a 44-year-old female that presents to emergency department complaining of dyspnea. She notes that she does have a history of asthma and is recently being treated for a bronchitis episode was steroids. She noted she is on her last steroids. She states this happens regularly about the same time every year and after the steroid she usually does a course of antibiotics that she is prescribed by her primary care. She notes that today this didn't be a little bit worse. She is Covid positive and just wanted make sure nothing more serious was wrong. She denied any chest pain headache nausea vomiting diarrhea constipation fever fatigue chills. - Related Data Home Medications Medication Instructions Recorded Confirmed Cetirizine HCl [Zyrtec] 10 mg PO DAILY 04/20/17 12/25/17 Citalopram Hydrobromide [CeleXA] 10 mg PO DAILY 04/20/17 12/25/17 Labetalol [Trandate] 100 mg PO BID 12/25/17 12/25/17 Previous Rx's Medication Instructions Recorded Levofloxacin [Levaquin] 500 mg PO DAILY #10 tab 04/19/20 Allergies Allergy/AdvReac Type Severity Reaction Status Date / Time nitrofurantoin Allergy Severe Dyspnea Verified 04/19/20 20:24 [From Macrobid] adhesive tape Allergy Rash/Hives Verified 04/19/20 20:24 shellfish derived [Shellfish] Allergy Swelling Verified 04/19/20 20:24 Sulfa (Sulfonamide Allergy Swelling Verified 04/19/20 20:24 Antibiotics) diphenhydramine AdvReac Unknown Verified 04/19/20 20:24 [From Benadryl] fish oil AdvReac Nausea & Verified 04/19/20 20:24 Vomiting Review of Systems ROS Statement: Those systems with pertinent positive or pertinent negative responses have been documented in the HPI. ROS Other: All systems not noted in ROS Statement are negative. Past Medical History Past Medical History: Asthma, Hearing Disorder / Deafness History of Any Multi-Drug Resistant Organisms: None Reported Past Surgical History: Section, Ear Surgery Past Anesthesia/Blood Transfusion Reactions: No Reported Reaction Past Psychological History: Anxiety Smoking Status: Never smoker Past Alcohol Use History: None Reported Past Drug Use History: None Reported - Past Family History Mother Family Medical History: No Reported History Father Family Medical History: No Reported History General Exam Limitations: no limitations General appearance: alert, in no apparent distress, obese Head exam: Present: atraumatic, normocephalic, normal inspection Eye exam: Present: normal appearance, PERRL, EOMI. Absent: scleral icterus, conjunctival injection, periorbital swelling ENT exam: Present: normal exam, mucous membranes moist Neck exam: Present: normal inspection. Absent: tenderness, meningismus, lymphadenopathy Respiratory exam: Present: normal lung sounds bilaterally. Absent: respiratory distress, wheezes, rales, rhonchi, stridor Cardiovascular Exam: Present: regular rate, normal rhythm, normal heart sounds. Absent: systolic murmur, diastolic murmur, rubs, gallop, clicks GI/Abdominal exam: Present: soft, normal bowel sounds. Absent: distended, tenderness, guarding, rebound, rigid Extremities exam: Present: normal inspection, full ROM, normal capillary refill. Absent: tenderness, pedal edema, joint swelling, calf tenderness Neurological exam: Present: alert, oriented X3, CN II-XII intact Psychiatric exam: Present: normal affect, normal mood Skin exam: Present: warm, dry, intact, normal color. Absent: rash Course Vital Signs 04/19/20 20:22 Temperature 102.2 F H Pulse Rate 127 H Respiratory 22 Rate Blood Pressure 143/86 O2 Sat by Pulse 96 Oximetry Medical Decision Making - Medical Decision Making 44-year-old female complaining of shortness of breath, she is cold. Positive. Labs, EKG, 2 L of oxygen via nasal cannula, chest x-ray ordered. 650 mg of Tylenol and 600 mg of Motrin ordered for fever. 750 mg of Levaquin ordered IV piggyback for possible pneumonia. Patient agreed to Kinza antibody therapy. She will do that treatment and then be discharged home per Dr. Woods with antibiotic therapy - Lab Data Result diagrams: 04/19/20 21:08 04/19/20 21:08 Lab Results 04/19/20 04/19/20 04/19/20 Range/Units 21:08 21:08 21:08 WBC 3.8 (3.8-10.6) k/uL RBC 4.88 (3.80-5.40) m/uL Hgb 14.0 (11.4-16.0) gm/dL Hct 42.1 (34.0-46.0) % MCV 86.2 (80.0-100.0) fL MCH 28.6 (25.0-35.0) pg MCHC 33.2 (31.0-37.0) g/dL RDW 13.4 (11.5-15.5) % Plt Count 141 L (150-450) k/uL MPV 8.1 Neutrophils % 77 % Lymphocytes % 19 % Monocytes % 2 % Eosinophils % 1 % Basophils % 0 % Neutrophils # 2.9 (1.3-7.7) k/uL Lymphocytes # 0.7 L (1.0-4.8) k/uL Monocytes # 0.1 (0-1.0) k/uL Eosinophils # 0.0 (0-0.7) k/uL Basophils # 0.0 (0-0.2) k/uL PT 13.2 H (9.0-12.0) sec INR 1.3 H (<1.2) APTT 53.8 H (22.0-30.0) sec D-Dimer 1.37 H (<0.60) mg/L FEU Sodium 136 L (137-145) mmol/L Potassium 4.2 (3.5-5.1) mmol/L Chloride 103 (98-107) mmol/L Carbon Dioxide 22 (22-30) mmol/L Anion Gap 11 mmol/L BUN 17 (7-17) mg/dL Creatinine 0.80 (0.52-1.04) mg/dL Est GFR (CKD-EPI)AfAm >90 (>60 ml/min/1.73 sqM) Est GFR (CKD-EPI)NonAf >90 (>60 ml/min/1.73 sqM) Glucose 116 H (74-99) mg/dL Plasma Lactic Acid Fracisco (0.7-2.0) mmol/L Calcium 9.1 (8.4-10.2) mg/dL Total Bilirubin 1.0 (0.2-1.3) mg/dL AST 99 H (14-36) U/L ALT 152 H (4-34) U/L Alkaline Phosphatase 97 (38-126) U/L Troponin I (0.000-0.034) ng/mL Total Protein 7.5 (6.3-8.2) g/dL Albumin 4.4 (3.5-5.0) g/dL Coronavirus (PCR) (Not Detectd) 04/19/20 04/19/20 04/19/20 Range/Units 21:08 21:08 21:52 WBC (3.8-10.6) k/uL RBC (3.80-5.40) m/uL Hgb (11.4-16.0) gm/dL Hct (34.0-46.0) % MCV (80.0-100.0) fL MCH (25.0-35.0) pg MCHC (31.0-37.0) g/dL RDW (11.5-15.5) % Plt Count (150-450) k/uL MPV Neutrophils % % Lymphocytes % % Monocytes % % Eosinophils % % Basophils % % Neutrophils # (1.3-7.7) k/uL Lymphocytes # (1.0-4.8) k/uL Monocytes # (0-1.0) k/uL Eosinophils # (0-0.7) k/uL Basophils # (0-0.2) k/uL PT (9.0-12.0) sec INR (<1.2) APTT (22.0-30.0) sec D-Dimer (<0.60) mg/L FEU Sodium (137-145) mmol/L Potassium (3.5-5.1) mmol/L Chloride (98-107) mmol/L Carbon Dioxide (22-30) mmol/L Anion Gap mmol/L BUN (7-17) mg/dL Creatinine (0.52-1.04) mg/dL Est GFR (CKD-EPI)AfAm (>60 ml/min/1.73 sqM) Est GFR (CKD-EPI)NonAf (>60 ml/min/1.73 sqM) Glucose (74-99) mg/dL Plasma Lactic Acid Fracisco 1.7 (0.7-2.0) mmol/L Calcium (8.4-10.2) mg/dL Total Bilirubin (0.2-1.3) mg/dL AST (14-36) U/L ALT (4-34) U/L Alkaline Phosphatase (38-126) U/L Troponin I <0.012 (0.000-0.034) ng/mL Total Protein (6.3-8.2) g/dL Albumin (3.5-5.0) g/dL Coronavirus (PCR) Detected A (Not Detectd) - EKG Data -: EKG Interpreted by Me EKG shows normal: sinus rhythm Rate: tachycardia EKG Comments: Ventricular rate 124 bpm, SD interval 128 ms, QRS duration 82 ms, QT/QTC 304/436 ms, PRT axes 9/-10/14. Sinus tachycardia, possible left atrial enlargement, borderline ECG. - Radiology Data Radiology results: report reviewed, image reviewed Chest x-ray: Partially consolidative opacity in the right upper lobe with elevation right hemidiaphragm. Findings most consistent with infectious process. Clinical correlation short-term follow to resolution is recommended. Disposition Clinical Impression: Pneumonia due to COVID-19 virus Disposition: HOME SELF-CARE Condition: Stable Instructions (If sedation given, give patient instructions): Viral Pneumonia (ED) Additional Instructions: Please return to the Emergency Department if symptoms worsen or any other concerns. Take antibiotics as prescribed until complete. Follow-up with primary care in 2-4 days. If any symptoms worsen such as shortness of breath dyspnea fever diarrhea cough gets worse please return to the ER. Prescriptions: Levofloxacin [Levaquin] 500 mg PO DAILY #10 tab Is patient prescribed a controlled substance at d/c from ED?: No Referrals: Rufino Tamayo DO [Primary Care Provider] - 1-2 days Time of Disposition: 22:55
[2020-04-19 21:23] LABS: Basophils % (A) 0 %; Eosinophils % (A) 1 %; HCT 42.1 % (34.0-46.0); Lymphocytes # (A) 0.7 k/uL (1.0-4.8); Lymphocytes % (A) 19 %; MCH 28.6 pg (25.0-35.0); MCHC 33.2 g/dL (31.0-37.0); MCV 86.2 fL (80.0-100.0); Mean Platelet Volume 8.1; Monocytes # (A) 0.1 k/uL (0-1.0); Monocytes % (A) 2 %; Neutrophils # (A) 2.9 k/uL (1.3-7.7); Neutrophils % (A) 77 %; Platelet Count 141 k/uL (150-450); RBC 4.88 m/uL (3.80-5.40); RDW 13.4 % (11.5-15.5); WBC 3.8 k/uL (3.8-10.6)
--- NOTE | 2020-04-19 21:24 | XR ---
EXAMINATION TYPE: XR chest 2V DATE OF EXAM: 04/19/2020 COMPARISON: NONE HISTORY: Shortness of breath TECHNIQUE: Frontal and lateral views of the chest are obtained. FINDINGS: There is a partially consolidative opacity involving the right middle lobe and there is el evation right hemidiaphragm. Left lung is clear. There is no pneumothorax or pleural effusion. Heart size is normal congested. The osseous structures are intact. IMPRESSION: Partially consolidative opacity in the right upper lobe with elevation right hemidiaphragm. Findings most consistent with infectious process. Clinical correlation and short-term follow-up to resolution is recommended
[2020-04-19 21:48] LABS: ALT 152 U/L (4-34); AST 99 U/L (14-36); African American GFR (CKD) >90 (>60 ml/min/1.73 sqM); Albumin 4.4 g/dL (3.5-5.0); Alkaline Phosphatase 97 U/L (38-126); Anion Gap 11 mmol/L; Blood Urea Nitrogen 17 mg/dL (7-17); Calcium 9.1 mg/dL (8.4-10.2); Carbon Dioxide 22 mmol/L (22-30); Chloride 103 mmol/L (98-107); Glucose 116 mg/dL (74-99); Non-African American GFR(CKD) >90 (>60 ml/min/1.73 sqM); Potassium 4.2 mmol/L (3.5-5.1); Sodium 136 mmol/L (137-145); Total Protein 7.5 g/dL (6.3-8.2)
[2020-04-19] MEDS ORDERED: LEVOFLOXACIN 750MG-D5W PMX 750 MG in DEXTROSE/WATER 1 150ML.BAG IVPB STA (21:48)
[2020-04-19] MEDS ORDERED: SODIUM CHLORIDE 0.9% 1,000 ML IV STA (21:53)
[2020-04-19 22:25] LABS: INR 1.3 (<1.2); Partial Thromboplastin Time 53.8 sec (22.0-30.0); Prothrombin Time 13.2 sec (9.0-12.0)
[2020-04-20] MEDS ORDERED: BAMLANIVIMAB (EUA) 700 MG in SODIUM CHLORIDE 0.9% 50 ML IVPB ONE (01:00)
[2020-04-20 01:19] VITALS: RESP 18; TEMP 98.3
[2020-04-20 03:51] VITALS: BP 137/84; PULSE 89
== END 2020-04-20 03:51 | disposition home or self-care (01) ==
LOC: EC 20:19
DX: U07.1 COVID-19 (principal); J12.82 Pneumonia due to coronavirus disease 2019; J45.909 Unspecified asthma, uncomplicated; H91.90 Unspecified hearing loss, unspecified ear; F41.9 Anxiety disorder, unspecified; Z79.899 Other long term (current) drug therapy; Z88.1 Allergy status to other antibiotic agents; Z91.013 Allergy to seafood; Z88.2 Allergy status to sulfonamides; Z88.8 Allergy status to other drugs, medicaments and biological substances; Z91.048 Other nonmedicinal substance allergy status; Z98.891 History of uterine scar from previous surgery
CPT/HCPCS: 36415; 93005; 85379; 80053; 83605; 84484; 85025; 85610; 85730; 87635; 71046; J1956; Q0239; 96365; 96367; 99285

== ENCOUNTER → 2023-02-21 | Outpatient (CLI) | payer OTHER ==
--- NOTE | 2023-02-21 18:00 | MR ---
EXAMINATION TYPE: MR cervical spine wo con DATE OF EXAM: 02/21/2023 4:47 PM CLINICAL INDICATION:Female, 47 years old with history of G43.009 MIGRAINE; Migraines x6 months COMPARISON: None. TECHNIQUE: Multi planar, multi sequence imaging was performed utilizing: T1-weighted, T2-weighted, an d turbo inversion recovery imaging of the cervical spine. IV Contrast: cc (none if empty) FINDINGS: Alignment: The cervical vertebral bodies have preserved heights. Alignment is within normal limits gi alfonso patient positioning. Bones: Scattered Modic endplate changes with osteophytes and disc space narrowing. Multilevel degener ative disc disease is noted and most pronounced at the C5-C7 vertebral levels. Cord: The spinal cord is unremarkable with regards to their signal intensity and morphology. Discs: Multilevel disc desiccation is present. C2-C3: No significant disc pathology. The spinal canal is patent. No neural foraminal stenosis. C3-C4: No significant disc pathology. The spinal canal is patent. Bilateral facet and uncovertebral joint arthropathy are present with mild right neural foraminal stenosis. The left neural foramen is p atent. C4-C5: A disc osteophyte complex is present with mild spinal canal stenosis. Bilateral facet and unc overtebral joint arthropathy are present with mild bilateral neural foraminal stenosis. C5-C6: A disc osteophyte complex is present with mild spinal canal stenosis. Bilateral facet and unc overtebral joint arthropathy are present with moderate bilateral neural foraminal stenosis. C6-C7: A disc osteophyte complex is present with mild to moderate spinal canal stenosis. Bilateral f acet and uncovertebral joint arthropathy are present with large severe right and mild left. Neural fo raminal stenosis. C7-T1: No significant disc pathology. The spinal canal is patent. No neural foraminal stenosis. Other: None. IMPRESSION: 1. No evidence for disc herniation or significant spinal canal stenosis. 2. Mild disc degeneration with associated osteoarthritic changes worse at C5-C7 with moderate bilater al C5-C6 and moderate to severe right C6-C7 neural foraminal stenosis.
== END | disposition home or self-care (01) ==
LOC: RADMRIMAIN 16:05
PROVIDERS: ATTEND Family Medicine
DX: M47.812 Spondylosis without myelopathy or radiculopathy, cervical region (principal); M50.321 Other cervical disc degeneration at C4-C5 level; M99.71 Connective tissue and disc stenosis of intervertebral foramina of cervical region; G43.009 Migraine without aura, not intractable, without status migrainosus
CPT/HCPCS: 72141